=== PATIENT | male | born 1995 | race Two or more races ===

== ENCOUNTER 2023-10-12 23:06 | Inpatient (IN) | payer OTHER ==
[2023-10-12 23:55] VITALS: BMI 21.5
[2023-10-13] MEDS ORDERED: NALOXONE HCL 0.4 MG/ML VIAL IM PRN (00:56)
[2023-10-13] MEDS ORDERED: BISMUTH SUBSALICYLATE 524 MG/30 ML PO PRN (00:56)
[2023-10-13] MEDS ORDERED: LOPERAMIDE HCL 2 MG CAPSULE PO PRN (00:56)
[2023-10-13] MEDS ORDERED: BENZOCAINE/MENTHOL (CHLORASEPTIC ) LOZENGE MM PRN (00:56)
[2023-10-13] MEDS ORDERED: BENZONATATE 200 MG CAPSULE PO PRN (00:56)
[2023-10-13] MEDS ORDERED: MAG HYDROX/AL HYDROX/SIMETH 30 ML UNIT-DOSE CUP PO PRN (00:56)
[2023-10-13] MEDS ORDERED: DICYCLOMINE HCL 10 MG CAPSULE PO PRN (00:56)
[2023-10-13] MEDS ORDERED: ACETAMINOPHEN 325 MG TABLET (FP) PO PRN (00:56)
[2023-10-13] MEDS ORDERED: MAGNESIUM HYDROX 2400MG/30ML ORAL SUSPENSION 30 ML CUP PO PRN (00:56)
[2023-10-13] MEDS ORDERED: ONDANSETRON *ODT* 4 MG TABLET SL PRN (00:56)
[2023-10-13] MEDS ORDERED: POLYETHYLENE GLYCOL (HEALTHYLAX) 3350 17 GM PACKET PO PRN (00:56)
[2023-10-13] MEDS ORDERED: NALOXONE (NARCAN) HCL 4 MG/0.1 ML SPRAY NS PRN (00:56)
[2023-10-13] MEDS ORDERED: guaiFENesin 600 MG TABLET.ER (FP) PO PRN (00:56)
[2023-10-13] MEDS ORDERED: hydrOXYzine PAMOATE 25 MG CAPSULE (FP) PO ONE (01:44)
[2023-10-13] MEDS ORDERED: METHOCARBAMOL 500 MG TABLET ONE (01:44)
[2023-10-13] MEDS ORDERED: IBUPROFEN 600 MG TABLET (FP) PO ONE (01:44)
[2023-10-13] MEDS: IBUPROFEN 600 MG TABLET (FP) PO PRN (01:50)
[2023-10-13] MEDS: hydrOXYzine PAMOATE 25 MG CAPSULE (FP) PO PRN (01:50)
[2023-10-13] MEDS: METHOCARBAMOL 500 MG TABLET PO PRN (01:55)
[2023-10-13] MEDS: PRENATAL VITAMINS W/ FOLIC ACID TABLET (FP) PO SCH (10:23)
[2023-10-13] MEDS: PATIENT'S OWN MEDICATION (NON-FORMULARY) (Glecaprevir/Pibrentasvir [Mavyret 100-40 Mg Tabl PO SCH (10:23)
[2023-10-13] MEDS: NICOTINE 14 MG/24 HOURS TOPICAL PATCH TD SCH (10:25)
[2023-10-13] MEDS ORDERED: LORazepam 1 MG TABLET PO PRN (11:03)
[2023-10-13] MEDS: methaDONE HCL 10 MG TABLET PO ONE (11:21)
[2023-10-13] MEDS: LORazepam 2 MG TABLET PO SCH (11:21)
[2023-10-13] MEDS ORDERED: methaDONE HCL 10 MG TABLET PO PRN (13:01)
[2023-10-13] MEDS: cloNIDine HCL 0.1 MG TABLET PO SCH (13:31)
[2023-10-13] MEDS ORDERED: MELATONIN 5 MG TABLETS PO SCH (22:00)
[2023-10-13] MEDS: SUVOREXANT 10 MG TABLET PO PRN (22:27)
[2023-10-13] MEDS: THIAMINE 100 MG TABLET PO SCH (22:27)
[2023-10-14] MEDS: methaDONE 40 MG, methaDONE 10 MG PO ONE (10:49)
[2023-10-14 11:14] LABS: POTASSIUM 4.8 mmol/L (3.5-5.1)
[2023-10-14 11:22] LABS: ALBUMIN 3.6 g/dl (3.4-5.0)
[2023-10-14 11:23] LABS: BLOOD UREA NITROGEN 14.8 mg/dL (7-18); CALCIUM 9.6 mg/dL (8.5-10.1)
[2023-10-14 11:25] LABS: CREATININE 0.8 mg/dL (0.55-1.3)
[2023-10-14 11:27] LABS: BILIRUBIN,TOTAL 0.5 mg/dL (0.2-1); HEMATOCRIT 37.8 % (35.4-49); MCH 29.1 pg (25.7-33.7); MCHC 34.4 g/dl (32.0-35.9); MEAN CELL VOLUME 84.6 fl (80-96); MEAN PLT VOLUME 8.3 fl (7.5-11.1); PLATELET COUNT 278 10^3/uL (134-434); RBC 4.47 M/mm3 (4.00-5.60); TOT PROT 7.6 g/dl (6.4-8.2); WHITE BLOOD COUNT 3.4 K/mm3 (4.0-10.0)
[2023-10-14] MEDS: NICOTINE POLACRILEX 2 MG GUM BUC PRN (17:53)
[2023-10-15] MEDS ORDERED: cloNIDine HCL 0.1 MG TABLET PO PRN
[2023-10-15] MEDS: LORazepam 1 MG TABLET PO SCH (05:54)
[2023-10-15] MEDS: methaDONE 40 MG, methaDONE 20 MG PO ONE (09:14)
[2023-10-15] MEDS: SULFAMETHOXAZOLE/TRIMETHOPRIM 800MG/160MG D.S. TABLET PO SCH (21:52)
[2023-10-15] MEDS: IBUPROFEN 400 MG TABLET (FP) PO PRN (21:55)
[2023-10-16] MEDS: LORazepam 0.5 MG TABLET PO PRN (02:20)
[2023-10-16] MEDS: LORazepam 0.5 MG TABLET PO SCH (05:51)
[2023-10-16] MEDS: methaDONE 40 MG, methaDONE 30 MG PO ONE (09:21)
[2023-10-17] MEDS: LORazepam 0.5 MG TABLET PO ONE (05:35)
[2023-10-17] MEDS: methaDONE HCL 40 MG DISPERSABLE TABLET PO ONE (09:08)
[2023-10-18] MEDS: methaDONE 80 MG, methaDONE 10 MG PO ONE (10:27)
[2023-10-19 06:25] VITALS: RESP 16
[2023-10-19] MEDS ORDERED: methaDONE HCL 10 MG TABLET PO ONE (09:26)
[2023-10-19] MEDS: methaDONE 80 MG, methaDONE 10 MG PO ONE (09:34)
[2023-10-19 12:48] VITALS: BP 107/61; PULSE 58; TEMP 97.3
== END 2023-10-19 12:46 | disposition other institution (70) | DRG 773 ==
LOC: YASAS 23:06 → Y6N 10-13 01:21
PROVIDERS: ADMIT Allergy & Immunology; ATTEND Surgery
PROC: HZ2ZZZZ Detoxification Services for Substance Abuse Treatment (ICD-10-PCS; principal; 2023-10-13)
DX: F11.20 Opioid dependence, uncomplicated (principal); F10.20 Alcohol dependence, uncomplicated; F14.20 Cocaine dependence, uncomplicated; F15.20 Other stimulant dependence, uncomplicated; F17.210 Nicotine dependence, cigarettes, uncomplicated; F19.282 Other psychoactive substance dependence with psychoactive substance-induced sleep disorder; F32.A Depression, unspecified; B18.2 Chronic viral hepatitis C; Z56.0 Unemployment, unspecified; Z59.00 Homelessness unspecified
CPT/HCPCS: 36415; 80053; 80305; 80307; 85027; 86780; 87811; 93005; 93010

== ENCOUNTER 2023-10-19 12:57 | Inpatient (IN) | payer OTHER ==
[2023-10-19] MEDS ORDERED: ACETAMINOPHEN 325 MG TABLET (FP) PO PRN (13:45)
[2023-10-19] MEDS ORDERED: MAG HYDROX/AL HYDROX/SIMETH 30 ML UNIT-DOSE CUP PO PRN (13:45)
[2023-10-19] MEDS ORDERED: LOPERAMIDE HCL 2 MG CAPSULE PO PRN (13:45)
[2023-10-19] MEDS ORDERED: BENZONATATE 200 MG CAPSULE PO PRN (13:45)
[2023-10-19] MEDS ORDERED: guaiFENesin 600 MG TABLET.ER (FP) PO PRN (13:45)
[2023-10-19] MEDS ORDERED: POLYETHYLENE GLYCOL (HEALTHYLAX) 3350 17 GM PACKET PO PRN (13:45)
[2023-10-19] MEDS ORDERED: NALOXONE (NARCAN) HCL 4 MG/0.1 ML SPRAY NS PRN (13:45)
[2023-10-19] MEDS ORDERED: NALOXONE HCL 0.4 MG/ML VIAL IVPUSH PRN (13:45)
[2023-10-19] MEDS ORDERED: hydrOXYzine PAMOATE 25 MG CAPSULE (FP) PO PRN (13:45)
[2023-10-19] MEDS ORDERED: BENZOCAINE/MENTHOL (CHLORASEPTIC ) LOZENGE MM PRN (13:45)
[2023-10-19] MEDS: METHOCARBAMOL 500 MG TABLET PO PRN (17:01)
[2023-10-19] MEDS: hydrOXYzine PAMOATE 25 MG CAPSULE (FP) PO PRN (17:01)
[2023-10-19] MEDS: THIAMINE 100 MG TABLET PO SCH (21:34)
[2023-10-19] MEDS: SULFAMETHOXAZOLE/TRIMETHOPRIM 800MG/160MG D.S. TABLET PO SCH (21:34)
[2023-10-19] MEDS: MELATONIN 5 MG TABLETS PO SCH (21:34)
[2023-10-19] MEDS: SUVOREXANT 10 MG TABLET PO PRN (21:35)
[2023-10-20] MEDS: methaDONE 80 MG, methaDONE 10 MG PO SCH (05:32)
[2023-10-20] MEDS ORDERED: methaDONE HCL 10 MG TABLET PO SCH (06:00)
[2023-10-20] MEDS: PRENATAL VITAMINS W/ FOLIC ACID TABLET (FP) PO SCH (09:23)
[2023-10-20] MEDS: NICOTINE 14 MG/24 HOURS TOPICAL PATCH TD SCH (09:23)
[2023-10-21] MEDS ORDERED: BACITRACIN 0.9 GM PACKET ONE (09:03)
[2023-10-21] MEDS: BACITRACIN 0.9 GM PACKET TP SCH (10:50)
[2023-10-21] MEDS: IBUPROFEN 600 MG TABLET (FP) PO PRN (15:23)
[2023-10-21] MEDS: IBUPROFEN 400 MG TABLET (FP) PO PRN (21:21)
[2023-10-22] MEDS: NICOTINE 21 MG/24 HOURS TOPICAL PATCH TD ONE (10:51)
[2023-10-23] MEDS: NICOTINE 21 MG/24 HOURS TOPICAL PATCH TD SCH (10:04)
[2023-10-23] MEDS: SUVOREXANT 10 MG TABLET PO PRN (21:16)
[2023-10-25] MEDS: SUVOREXANT 10 MG TABLET PO PRN (21:42)
[2023-10-26] MEDS: methaDONE 80 MG, methaDONE 10 MG PO SCH (05:34)
[2023-10-27] MEDS ORDERED: methaDONE HCL 40 MG DISPERSABLE TABLET PO SCH (06:30)
[2023-10-27] MEDS: methaDONE 80 MG, methaDONE 10 MG PO SCH (06:45)
[2023-10-27] MEDS: BACLOFEN 10 MG TABLET (FP) PO SCH (12:36)
[2023-10-27] MEDS: SUVOREXANT 10 MG TABLET PO PRN (21:09)
[2023-10-28] MEDS ORDERED: methaDONE HCL 10 MG TABLET PO SCH (06:00)
[2023-10-28] MEDS: GABAPENTIN 100 MG CAPSULE PO SCH (15:53)
[2023-10-28] MEDS: SUVOREXANT 15 MG TABLET PO PRN (21:32)
[2023-10-30] MEDS: BACLOFEN 10 MG TABLET (FP) PO SCH (14:13)
[2023-10-31] MEDS ORDERED: methaDONE HCL 40 MG DISPERSABLE TABLET PO SCH (06:00)
[2023-10-31] MEDS: methaDONE 80 MG, methaDONE 10 MG PO SCH (06:04)
[2023-10-31] MEDS: GABAPENTIN 100 MG CAPSULE PO SCH (14:11)
[2023-11-06] MEDS: OXYMETAZOLINE 0.05% NASAL SOLUTION 15 ML BOTTLE NS PRN (15:54)
[2023-11-06] MEDS: guaiFENesin 200 MG/10 ML 10 ML UNIT-DOSE CUPS PO PRN (15:56)
[2023-11-07] MEDS: GABAPENTIN 300 MG CAPSULE PO SCH (21:16)
[2023-11-08] MEDS ORDERED: SUVOREXANT 15 MG TABLET PO PRN (22:00)
[2023-11-11] MEDS: MAGNESIUM HYDROX 2400MG/30ML ORAL SUSPENSION 30 ML CUP PO PRN (18:17)
[2023-11-12 06:13] VITALS: BP 103/66; PULSE 67; RESP 16; TEMP 97.1
== END 2023-11-12 09:32 | disposition home or self-care (01) | DRG 772 ==
LOC: YASAS 12:57 → Y3NR 13:06 → Y3W 10-20 11:15
PROVIDERS: ADMIT Psychiatry & Neurology Pain Medicine; ATTEND Psychiatry & Neurology Pain Medicine
PROC: HZ42ZZZ Group Counseling for Substance Abuse Treatment, Cognitive-Behavioral (ICD-10-PCS; principal; 2023-10-19)
DX: F11.20 Opioid dependence, uncomplicated (principal); F10.20 Alcohol dependence, uncomplicated; F14.20 Cocaine dependence, uncomplicated; F15.10 Other stimulant abuse, uncomplicated; F17.210 Nicotine dependence, cigarettes, uncomplicated; F19.282 Other psychoactive substance dependence with psychoactive substance-induced sleep disorder; F19.280 Other psychoactive substance dependence with psychoactive substance-induced anxiety disorder; F19.24 Other psychoactive substance dependence with psychoactive substance-induced mood disorder; B18.2 Chronic viral hepatitis C; J30.9 Allergic rhinitis, unspecified; L02.413 Cutaneous abscess of right upper limb; Z56.0 Unemployment, unspecified; Z59.00 Homelessness unspecified
CPT/HCPCS: 36415; 86803; 87522; J0475